=== PATIENT | male | born 2000 | race Hispanic/Latino ===

== ENCOUNTER 2021-10-23 22:05 | Emergency (ER) | payer BC, SELFPAY ==
--- OUTSIDE RECORDS SUMMARY | 2021-10-23 22:07 | XMS REPORT | Continuity of Care Document ---
:2000 Author Organization [facility] t Address [address] [place] [address] Care Team Providers Name Role Phone Alex Attending Clinician Unavailable Problems This patient has no known problems. Allergies, Adverse Reactions, Alerts This patient has no known allergies or adverse reactions. Medications This patient has no known medications. Procedures This patient has no known procedures. Encounters Start End Encounter Admission Attending Care Care Encounter Source Date/Time Date/Time Type Type Clinicians Facility Department ID 2021-07-20 [facility] [id number] [facility] 14:21:30 [place] [id number] [facility] 2021-07-20 [facility] [id number] [facility] 14[facility]20:24 [id number] [facility] 2021-06-03 2021-06-03 [facility] [id number] [facility] 2021-05-31 2021-05-31 ambulatory [facility] [id number] [facility] 2018-02-14 2018-02-14 [facility] [id number] 11:00[facility]00 11:00[facility]00 [facility] Results Test Description Test Time Test Comments Results Result Comments Source SARS-CoV-2 (COVID-19), RT-PCR/TMA 2021-07-20 08:40:51 Test Item Value Reference Range Interpretation Comme nts SARS-CoV-2 INTERPRETATION POSITIVE SEE NOTE A S ARS-CoV-2 RNA DETECTEDPositive (test code = 70119) results are indicative of the presence of FLAKITA S-CoV-2 RNA;clinical co rrelation with patient history and other diagnosticinfor mation is necessary to de termine patient infection statu s.Positive results do not rule out bacterial infection or co -infectionwith other viruses. Positive and negative predic tive values oftesting are h ighly dependent on prevalence. SOURCE (test code = 79274) NOT SPECIFIED Note: Methodology is Cube[employer] Real-Time RT-PC R. The expected result or ref erence range is NEGATIVE (Not D etected). For more information reg arding COVID-19 testing to incl ude clinicalinforma tion, methodology detail, intende d use, FDA authorization a ndrecommended fact sheets for susy ents or healthcare providers, see NewTest Announcement: S ARS-CoV-2 (COVID-19) by N AAT at URL below (note,fact shee ts are provided by method given in report:https:// www.[employer]/cl inicians/client -communications/ Alternatively, see downloadable PDF fact sheet at:https://www. [employer]/COVID- 19-RT-PCR UNLESS OTHERWISE INDICATED, ALL TESTING PERFORMED ATCLINICAL PATH [facility]. [address] [place] [address] 4 LABORATORY DIRE CTOR: MARCELL SMITH M.D. CLIA NUMBER [id number] [facility] [place]. [id number]
--- NOTE | 2021-10-24 02:01 | EDPHYS ---
Physician Documentation [facility] Name: Tha Suh Age: 21 yrs Sex: Male : 2000 Arrival Date: 10/23/2021 Time: 22:08 Bed 8 Private MD: HENRI Physician Eagle Rios HPI: 10/24 01:55 This 21 yrs old Male presents to ER via Ambulatory with complaints of Knee annika Injury. 01:55 The patient presents with decreased range of motion, pain, that is acute. The annika complaints affect the medial aspect of right knee. Context: The problem was sustained on a street or driveway. Onset: The symptoms/episode began/occurred yesterday. Modifying factors: The symptoms are alleviated by elevating leg, remaining still, the symptoms are aggravated by movement, weight bearing, bending knee. Associated signs and symptoms: The patient has no apparent associated signs or symptoms. Severity of symptoms: At their worst the symptoms were moderate, in the emergency department the symptoms are unchanged. The patient has not experienced similar symptoms in the past. Historical: - Allergies: 10/23 22:35 No Known Allergies; jb4 - Home Meds: 22:35 None [Active]; jb4 - PMHx: 22:35 None; jb4 - PSHx: 22:35 None; jb4 - Immunization history:: Adult Immunizations up to date. - Social history:: Smoking status: Patient reports the use of cigarette tobacco products, denies chronic smoking, but will smoke occasionally, Patient uses alcohol, occasionally. Patient/guardian denies using street drugs. - Family history:: not pertinent. ROS: 10/24 01:55 Constitutional: Negative for fever, chills, and weight loss, Eyes: Negative for injury, annika pain, redness, and discharge, ENT: Negative for injury, pain, and discharge, Neck: Negative for injury, pain, and swelling, Cardiovascular: Negative for chest pain, palpitations, and edema, Respiratory: Negative for shortness of breath, cough, wheezing, and pleuritic chest pain, Abdomen/GI: Negative for abdominal pain, nausea, vomiting, diarrhea, and constipation, Back: Negative for injury and pain, : Negative for injury, bleeding, discharge, and swelling, Skin: Negative for injury, rash, and discoloration, Neuro: Negative for headache, weakness, numbness, tingling, and seizure, Psych: Negative for depression, anxiety, suicide ideation, homicidal ideation, and hallucinations, Allergy/Immunology: Negative for hives, rash, and allergies, Endocrine: Negative for neck swelling, polydipsia, polyuria, polyphagia, and marked weight changes, Hematologic/Lymphatic: Negative for swollen nodes, abnormal bleeding, and unusual bruising. MS/extremity: Positive for decreased range of motion, pain, of the medial aspect of right knee. Exam: 01:55 Constitutional: This is a well developed, well nourished patient who is awake, alert, annika and in no acute distress. Head/Face: Normocephalic, atraumatic. Eyes: Pupils equal round and reactive to light, extra-ocular motions intact. Lids and lashes normal. Conjunctiva and sclera are non-icteric and not injected. Cornea within normal limits. Periorbital areas with no swelling, redness, or edema. ENT: Nares patent. No nasal discharge, no septal abnormalities noted. Tympanic membranes are normal and external auditory canals are clear. Oropharynx with no redness, swelling, or masses, exudates, or evidence of obstruction, uvula midline. Mucous membranes moist. Neck: Trachea midline, no thyromegaly or masses palpated, and no cervical lymphadenopathy. Supple, full range of motion without nuchal rigidity, or vertebral point tenderness. No Meningismus. Chest/axilla: Normal chest wall appearance and motion. Nontender with no deformity. No lesions are appreciated. Cardiovascular: Regular rate and rhythm with a normal S1 and S2. No gallops, murmurs, or rubs. Normal PMI, no JVD. No pulse deficits. Respiratory: Lungs have equal breath sounds bilaterally, clear to auscultation and percussion. No rales, rhonchi or wheezes noted. No increased work of breathing, no retractions or nasal flaring. Abdomen/GI: Soft, non-tender, with normal bowel sounds. No distension or tympany. No guarding or rebound. No evidence of tenderness throughout. Back: No spinal tenderness. No costovertebral tenderness. Full range of motion. Male : Normal genitalia with no discharge or lesions. Skin: Warm, dry with normal turgor. Normal color with no rashes, no lesions, and no evidence of cellulitis. Neuro: Awake and alert, GCS 15, oriented to person, place, time, and situation. Cranial nerves II-XII grossly intact. Motor strength 5/5 in all extremities. Sensory grossly intact. Cerebellar exam normal. Normal gait. Psych: Awake, alert, with orientation to person, place and time. Behavior, mood, and affect are within normal limits. 01:55 Musculoskeletal/extremity: ROM: full active range of motion, full passive range of motion. Vital Signs: 10/23 22:34 BP 121 / 71; Pulse 57; Resp 16; Temp 98.9(O); Pulse Ox 100% on R/A; Weight 63.5 kg (R); jb4 Height 5 ft. 4 in. (162.56 cm) (R); Pain 6/10; 22:34 Body Mass Index 24.03 (63.50 kg, 162.56 cm) jb4 MDM: 10/24 00:49 Patient medically screened. annika 10/23 22:49 Order name: Knee Left 3 View XRAY jmm Administered Medications: 02:16 Not Given (Patient Refused): Motrin (ibuprofen) 600 mg PO once as6 Disposition Summary: 10/24/21 02:01 Discharge Ordered Location: Home annika Problem: new annika Symptoms: have improved annika Condition: Stable annika Diagnosis - Sprain of medial collateral ligament of left knee annika - Pain in left knee annika Followup: annika - With: Private Physician - When: 2 - 3 days - Reason: Recheck today's complaints, Continuance of care, Re-evaluation by your physician Followup: annika - With: Adrien Hoffmann MD - When: 2 - 3 days - Reason: Recheck today's complaints, Re-evaluation by your physician Discharge Instructions: - Discharge Summary Sheet annika - Joint Pain annika - How to Use a Knee Brace annika - Acute Knee Pain, Adult annika - Joint Pain, [id number] annika - Medial Collateral Knee Ligament Sprain annika Forms: - Medication Reconciliation Form annika - Thank You Letter annika - Antibiotic Education annika - Prescription Opioid Use annika Prescriptions: - Ibuprofen 600 mg Oral Tablet - take 1 tablet by ORAL route every 6 hours As needed take with food; 20 tablet; annika Refills: 0, Product Selection Permitted - Tylenol-Codeine #3 300 mg-30 mg Oral - take 1 tablet by ORAL route every 4 hours; 20 tablet; Refills: 0, Product annika Selection Permitted Signatures: Dispatcher [employer] Eagle Pascual MD MD cha Bryson, James RN RN jb4 Vahe Aranda RN as6 Corrections: (The following items were deleted from the chart) 02:30 01:55 Ice pack ordered. annika as6 02:30 01:55 Knee Immobilizer ordered. annika as6
--- NOTE | 2021-10-24 02:01 | ER ---
Nurse's Notes [facility] Name: Tha Suh Age: 21 yrs Sex: Male : 2000 Arrival Date: 10/23/2021 Time: 22:08 Bed 8 Private MD: Diagnosis: Sprain of medial collateral ligament of left knee;Pain in left knee Presentation: 10/23 22:34 Chief complaint: Patient states: I was skate boarding and fell on my left knee. It bend jb4 outward and I heard a pop. I think I may have dislocated it. Coronavirus screen: At this time, the client does not indicate any symptoms associated with coronavirus-19. Ebola Screen: No symptoms or risks identified at this time. Initial Sepsis Screen: Does the patient meet any 2 criteria? No. Patient's initial sepsis screen is negative. Does the patient have a suspected source of infection? No. Patient's initial sepsis screen is negative. Risk Assessment: Do you want to hurt yourself or someone else? Patient reports no desire to harm self or others. Onset of symptoms was October 23, 2021. Transition of care: patient was not received from another setting of care. 22:34 Method Of Arrival: Ambulatory jb4 22:34 Acuity: ROGER 4 jb4 Historical: - Allergies: 22:35 No Known Allergies; jb4 - Home Meds: 22:35 None [Active]; jb4 - PMHx: 22:35 None; jb4 - PSHx: 22:35 None; jb4 - Immunization history:: Adult Immunizations up to date. - Social history:: Smoking status: Patient reports the use of cigarette tobacco products, denies chronic smoking, but will smoke occasionally, Patient uses alcohol, occasionally. Patient/guardian denies using street drugs. - Family history:: not pertinent. Screenin/02 02:33 Abuse screen: Denies threats or abuse. Denies injuries from another. Nutritional as6 screening: No deficits noted. Tuberculosis screening: No symptoms or risk factors identified. Fall Risk None identified. Assessment: 02:30 General: Appears in no apparent distress. Pain: Complains of pain in left knee. Neuro: as6 Level of Consciousness is awake, alert, obeys commands, Oriented to person, place, time, situation. Cardiovascular: JVD is absent Patient's skin is warm and dry. Respiratory: Respiratory effort is even, unlabored, Respiratory pattern is regular, symmetrical. Musculoskeletal: Reports pain in left knee. 02:33 General: Behavior is calm, cooperative. as6 Vital Signs: 05 22:34 BP 121 / 71; Pulse 57; Resp 16; Temp 98.9(O); Pulse Ox 100% on R/A; Weight 63.5 kg (R); jb4 Height 5 ft. 4 in. (162.56 cm) (R); Pain 6/10; 22:34 Body Mass Index 24.03 (63.50 kg, 162.56 cm) jb4 ED Course: 22:08 Patient arrived in ED. bp1 22:35 Triage completed. jb4 22:35 Arm band placed on right wrist. jb4 23:42 Knee Left 3 View XRAY In Process Unspecified. EDNC 10/24 00:37 Eagle Rios MD is Attending Physician. [facility] 00:45 Amrik Stauffer PA is PHCP. [facility] 00:58 Vahe Aranda, RN is Primary Nurse. as6 01:58 Adrien Hoffmann MD is Referral Physician. annika 02:33 Bed in low position. Call light in reach. Adult w/ patient. as6 02:33 No provider procedures requiring assistance completed. Patient did not have IV access as6 during this emergency room visit. Administered Medications: 02:16 Not Given (Patient Refused): Motrin (ibuprofen) 600 mg PO once as6 Outcome: 02:01 Discharge ordered by . [facility] 02:33 Discharged to home ambulatory, with family. as6 02:33 Condition: stable 02:33 Discharge instructions given to pt left without receiving discharge instructions/papers/prescriptions 02:34 Patient left the ED. as6 Signatures: Dispatcher [employer] EDNC Eagle Rios MD MD cha Mickail, Joel, PA PA jmm Bryson, James, RN RN jb4 [facility] Vahe Aranda, PILAR RN as6
[2021-10-24] MEDS ORDERED: IBUPROFEN 400 MG TAB ONE (02:18)
[2021-10-24] MEDS ORDERED: IBUPROFEN 200 MG TAB PO ONE (02:18)
--- NOTE | 2021-10-24 21:27 | RAD REPORT ---
EXAM DESCRIPTION: RAD - Knee Left 3 View - 10/23/2021 11:40 pm CLINICAL HISTORY: Fall COMPARISON: None. TECHNIQUE: XR KNEE 3 VIEWS 10/23/2021 10:49 PM CDT FINDINGS: There is no fracture. Joint spaces are preserved. Soft tissues are unremarkable. IMPRESSION: No acute osseous findings. Electronically signed by: Evangelist Francois MD 10/24/2021 12:04 AM CDT Due to temporary technical issues with the PACS/Fluency reporting system, reports are being signed by the in house radiologists without review as a courtesy to insure prompt reporting. The interpreting radiologist is fully responsible for the content of the report.
== END 2021-10-24 02:34 | disposition home or self-care (01) ==
LOC: ER 22:05
DX: S83.412A Sprain of medial collateral ligament of left knee, initial encounter (principal); F17.210 Nicotine dependence, cigarettes, uncomplicated
CPT/HCPCS: 99283

== ENCOUNTER 2023-04-22 04:02 | Emergency (ER) | payer SELFPAY ==
--- OUTSIDE RECORDS SUMMARY | 2023-04-22 04:05 | XMS REPORT | Continuity of Care Document ---
:2000 Author Organization [facility] t Address [address] [place] [address] Care Team Providers Name Role Phone Edna Johnson Attending Clinician Unavailable Problems Condition Condition Condition Status Onset Resolution Last Treating Co mments Source Name Details Category Date Date Treatment Clinician Date [id number] Sprain of Problem Active Comm on anterior [facility] talofibula - [facility] r ligament St of left [facility] ankle, [facility] initial Center encounter [id number] Pain, Problem Active Commo n [id number] joint, [facility] ankle, [facility] right [facility] [id number] Pain, Problem Active Commo n [id number] joint, [facility] foot, [facility] right [facility] Allergies, Adverse Reactions, Alerts This patient has no known allergies or adverse reactions. Social History Social Habit Start Date Stop Date Quantity Comments Source History of Tobacco Use Co mmon [facility] Sex Assigned At Com mon [facility] Smoking Status Start Date Stop Date Source Never Smoker [facility] Medications Ordered Filled Start Stop Current Ordering Indication Dosage Frequency Signature Comments Components Source Medication Medication Date Date Medication? Clinician (SIG) Name Name No Known No Known No Common Medications Medications [facility] Vital Signs Vital Name Observation Time Observation Value Comments Source height 2021-05-31 10:00:00 64 [in_i] Common [facility] weight 2021-05-31 10:00:00 136.6 [lb_av] Common [facility] temperature 2021-05-31 10:00:00 97.1 [degF] Common [facility] bmi 2021-05-31 10:00:00 23.44 kg/m2 Common [facility] oximetry 2021-05-31 10:00:00 100 % Common [facility] respiratory rate 2021-05-31 10:00:00 16 /min Comm on [facility] blood pressure 2021-05-31 10:00:00 120 mm[Hg] Common [facility] - systolic [facility] blood pressure 2021-05-31 10:00:00 70 mm[Hg] Common [facility] - diastolic [facility] Procedures This patient has no known procedures. Encounters Start End Encounter Admission Attending Care Care Encounter Source Date/Time Date/Time Type Type Clinicians Facility Department ID 2021-07-20 Outpatient Johnson, [facility] [id number] Common 14:21:30 Avnee [id number] [facility] 2021-07-20 Outpatient [facility] ST[facility] [id number] [facility] 14:20:24 [id number] [facility] 2021-06-03 2021-06-03 ambulatory STLMLC STL[facility]C [id number] [facility] 00:00:00 00:00:00 [facility] 2021-05-31 2021-05-31 OFFICE STLMLC STLMLC [id number] Co mmon 00:00:00 00:00:00 VISIT EST Spir it PT LEVEL 3 - [facility] 2018-02-14 2018-02-14 [facility] [id number] [facility] 11:00:00 11:00:00 [facility] Results Test Description Test Time Test Comments Results Result Comments Source SARS-CoV-2 (COVID-19), RT-PCR/TMA 2021-07-20 08:40:51 Test Item Value Reference Range Interpretation Comme nts SARS-CoV-2 INTERPRETATION POSITIVE SEE NOTE A S ARS-CoV-2 RNA DETECTEDPositive (test code = 76000) results are indicative of the presence of FLAKITA S-CoV-2 RNA;clinical co rrelation with patient history and other diagnosticinfor mation is necessary to de termine patient infection statu s.Positive results do not rule out bacterial infection or co -infectionwith other viruses. Positive and negative predic tive values oftesting are h ighly dependent on prevalence. SOURCE (test code = 64150) NOT SPECIFIED Note: Methodology is [employer] Mar[employer] Real-Time RT-PC R. The expected result or refer ence range is NEGATIVE (Not D etected). For more information reg arding COVID-19 testing to incl ude clinicalinforma tion, methodology detail, intende d use, FDA authorization a ndrecommended fact sheets for susy ents or healthcare providers, see NewTest Announcement: S ARS-CoV-2 (COVID-19) by N AAT at URL below (note,fact shee ts are provided by method given in report:https:// www.[employer]/cl inicians/client -communications/ Alternatively, see downloadable PDF fact sheet at:https://www. [employer]/COVID- 19-RT-PCR UNLES S OTHERWISE INDICATED, ALL TESTING PERFORMED ATCLINICAL PATH [facility]. [address] [place] [address] 4 PACKAGING CLERK: MARCELL SMITH M.D. CLIA NUMBER [id number] [facility] N O. [id number]
[2023-04-22 04:33] LABS: Absolute Lymphocytes (CBC) 1.4 K/uL (0.7-4.9); Hematocrit 36.1 % (39.6-49.0); Lymphocytes % 14.4 % (15.3-44.8); MCV 92.5 fL (80-100); MPV 8.3 fL (7.6-11.3); Platelets 203 thou/uL (152-406)
[2023-04-22 04:39] LABS: Protime INR 1.07
[2023-04-22 04:51] LABS: ALT/SGPT 23 U/L (16-61); AST/SGOT 22 U/L (15-37); Albumin 3.9 g/dL (3.4-5.0); Alkaline Phosphatase 55 U/L (45-117); BUN Blood Urea Nitrogen 8 mg/dL (7-18); Bicarbonate 25 mEq/L (21-32); Bilirubin Direct 0.2 mg/dL (0-0.2); Bilirubin Indirect, Calculated 0.5 mg/dL (0.2-0.8); Bilirubin Total 0.7 mg/dL (0.2-1.0); Glomerular Filtration Rate 125 ml/min (=/>90); Glucose Level 121 mg/dL (74-106); Potassium 3.3 mEq/L (3.5-5.1); Protein, Total 7.4 g/dL (6.4-8.2); Sodium Level 142 mEq/L (136-145)
[2023-04-22 06:38] LABS: Specific Gravity < 1.005 (1.005-1.030); Urine Bacteria None Seen /HPF (<20); Urine Bilirubin NEGATIVE (Negative); Urine Blood Negative (Negative); Urine Clarity Turbid (Clear); Urine Color Colorless (Yellow); Urine Glucose NEGATIVE (Negative); Urine Protein NEGATIVE (Negative); Urine RBC <5 /HPF (None Seen); Urine Urobilinogen Normal (Normal)
[2023-04-22 06:53] LABS: Barbiturates NEGATIVE (NEGATIVE); Benzodiazepines NEGATIVE (NEGATIVE); Cocaine NEGATIVE (NEGATIVE); METHAMPHETAM NEGATIVE (NEGATIVE); Opiates NEGATIVE (NEGATIVE); Phencyclidine NEGATIVE (NEGATIVE); THC Cannibis POSITIVE (NEGATIVE)
[2023-04-22 08:36] LABS: Methadone ND (NEGATIVE)
--- NOTE | 2023-04-22 10:02 | ER ---
Nurse's Notes [facility] Name: Tha Suh Age: 23 yrs Sex: Male : 2000 Arrival Date: 04/22/2023 Time: 04:02 Bed 20 Private MD: Diagnosis: Alcohol use, unspecified with intoxication, uncomplicated Presentation: 04/22 04:08 Chief complaint: EMS states: He was found in the middle of the road. apparently his ha1 friends got him of the car because he defecated on himself. responds to name with sternum rub. Coronavirus screen: Vaccine status:. Ebola Screen: No symptoms or risks identified at this time. Initial Sepsis Screen: Does the patient meet any 2 criteria? No. Patient's initial sepsis screen is negative. Does the patient have a suspected source of infection? No. Patient's initial sepsis screen is negative. Risk Assessment: Do you want to hurt yourself or someone else? Patient reports no desire to harm self or others. 04:08 Method Of Arrival: EMS: [facility] ha1 04:08 Acuity: ROGER 2 ha1 04:08 Onset of symptoms was April 22, 2023. ha1 09:40 Risk Assessment: Do you want to hurt yourself or someone else? Patient reports no nj1 desire to harm self or others. Triage Assessment: 04:08 General: Appears well developed, Behavior is responds to name with sternum rub . Pain: ha1 Unable to use pain scale. FLACC scale score is 0 out of 10. Neuro: Level of Consciousness is lethargic, Oriented to person. Cardiovascular: Heart tones S1 S2 present Capillary refill < 3 seconds Patient's skin is warm and dry. Rhythm is sinus rhythm. Respiratory: Airway is patent Respiratory effort is even, unlabored, Respiratory pattern is regular, symmetrical. Derm: Skin is pink, warm \T\ dry. Historical: - Allergies: 04:08 No Known Allergies; ha1 - PMHx: 04:08 None; ha1 - Immunization history:: Adult Immunizations unknown. - Social history:: Smoking status: unknown. Screenin:04 Abuse screen: Denies threats or abuse. Denies injuries from another. Nutritional ha1 screening: No deficits noted. Tuberculosis screening: No symptoms or risk factors identified. Assessment: 04:08 Reassessment: see triage assessment. ha1 05:10 Reassessment:. General: Appears comfortable. Cardiovascular: Capillary refill < 3 ha1 seconds Patient's skin is warm and dry. Respiratory: Airway is patent Respiratory effort is even, unlabored, Respiratory pattern is regular, symmetrical. 06:10 Reassessment: eyes closed. Respiratory: Airway is patent Respiratory effort is even, ha1 unlabored, Respiratory pattern is regular, symmetrical. 09:45 Reassessment: Patient appears in no apparent distress at this time. Patient and/or nj1 family updated on plan of care and expected duration. Pain level reassessed. Patient is alert, oriented x 3, equal unlabored respirations, skin warm/dry/pink. Vital Signs: 04:08 BP 109 / 59; Pulse 68; Resp 20; Temp 97.9; Pulse Ox 97% on R/A; Weight 70.31 kg; Height ha1 5 ft. 7 in. ; 05:15 BP 99 / 57; Pulse 63; Resp 17 S; Pulse Ox 96% on R/A; ha1 06:10 BP 102 / 65; Pulse 64; Resp 18 S; Pulse Ox 98% on R/A; ha1 09:37 BP 102 / 63; Pulse 70; Resp 16; Pulse Ox 99% ; nj1 04:08 Body Mass Index 24.28 (70.31 kg, 170.18 cm) ha1 ED Course: 04:08 Patient arrived in ED. ha1 04:08 Srikanth Kelley MD is Attending Physician. rt 04:08 Arm band placed on right wrist. ha1 04:08 Patient has correct armband on for positive identification. Bed in low position. Call ha1 light in reach. Side rails up X 1. 04:15 Inserted saline lock: 20 gauge in right antecubital area, using aseptic technique. ha1 Blood collected. 04:25 Victorina Hebert, RN is Primary Nurse. ha1 04:25 Acetaminophen Sent. ha1 04:25 Basic Metabolic Panel Sent. ha1 04:25 CBC with Diff Sent. ha1 04:25 ETOH Level Sent. ha1 04:58 Triage completed. ha1 05:04 CT Head C Spine In Process Unspecified. EDMS 05:45 Straight cath inserted, using sterile technique, 16 Fr. Returned clear yellow urine. ha1 Patient tolerated well. 07:22 Attending Physician role handed off by Srikanth Kelley MD ec2 07:22 Angel Paul MD is Attending Physician. ec2 09:45 Provided Education on: call light, fall precautions. nj1 09:50 No provider procedures requiring assistance completed. IV discontinued, intact, nj1 bleeding controlled. Administered Medications: No medications were administered Medication: 10:33 VIS not applicable for this client. nj1 Outcome: 10:01 Discharge ordered by . ec2 10:05 Discharged to home ambulatory, with friend, nj1 10:05 Condition: stable 10:05 Discharge instructions given to Left prior to receiving discharge paperwork. 10:33 Patient left the ED. nj1 Signatures: Dispatcher [employer] Victorina Rivas RN RN ha1 Srikanth Kelley MD MD rt Gladis Panda RN RN nj1 Angel Paul MD MD ec2 Corrections: (The following items were deleted from the chart) 06:20 04:08 BP 109 / 59; Pulse 68bpm; Resp 20bpm; Pulse Ox 98% RA; Temp 97.9F; 70.31 kg; ha1 Height 5 ft. 7 in.; BMI: 24.2; ha1
--- NOTE | 2023-04-22 10:02 | EDPHYS ---
Physician Documentation [facility] Name: Tha Suh Age: 23 yrs Sex: Male : 2000 Arrival Date: 04/22/2023 Time: 04:02 Bed 20 Private MD: ED Physician Angel Paul HPI: 04/22 05:17 This 23 yrs old Male presents to ER via EMS with complaints of ETOH Abuse. rt 05:17 Patient was brought in by EMS for reported alcohol intoxication. The patient was rt reportedly found on the ground in the street. No obvious signs of trauma. States the patient defecated on himself. No further history could be obtained, symptoms are moderate severity, no other aggravating or alleviating factors.. Historical: - Allergies: 04:08 No Known Allergies; ha1 - PMHx: 04:08 None; ha1 - Immunization history:: Adult Immunizations unknown. - Social history:: Smoking status: unknown. ROS: 05:17 Unable to obtain ROS due to altered mental status, rt 10:01 Constitutional: as per hpi ec2 Exam: 05:17 Head/Face: Normocephalic, atraumatic. Chest/axilla: Normal chest wall appearance and rt motion. Nontender with no deformity. No lesions are appreciated. Cardiovascular: Regular rate and rhythm with a normal S1 and S2. No gallops, murmurs, or rubs. Normal PMI, no JVD. No pulse deficits. Respiratory: Lungs have equal breath sounds bilaterally, clear to auscultation and percussion. No rales, rhonchi or wheezes noted. No increased work of breathing, no retractions or nasal flaring. Abdomen/GI: Soft, non-tender, with normal bowel sounds. No distension or tympany. No guarding or rebound. No evidence of tenderness throughout. Skin: Warm, dry with normal turgor. Normal color with no rashes, no lesions, and no evidence of cellulitis. MS/ Extremity: Pulses equal, no cyanosis. Neurovascular intact. Full, normal range of motion. 05:17 Constitutional: The patient appears Somnolent, protecting airway 05:17 Neuro: Somnolent, moves all 4 extremities equally, no speech noted, 06:55 ECG was reviewed by the Attending Physician. rt Vital Signs: 04:08 BP 109 / 59; Pulse 68; Resp 20; Temp 97.9; Pulse Ox 97% on R/A; Weight 70.31 kg; Height ha1 5 ft. 7 in. ; 05:15 BP 99 / 57; Pulse 63; Resp 17 S; Pulse Ox 96% on R/A; ha1 06:10 BP 102 / 65; Pulse 64; Resp 18 S; Pulse Ox 98% on R/A; ha1 09:37 BP 102 / 63; Pulse 70; Resp 16; Pulse Ox 99% ; nj1 04:08 Body Mass Index 24.28 (70.31 kg, 170.18 cm) ha1 MDM: 04:08 Patient medically screened. rt 07:22 ED course: Patient signed out to me by previous physician, in brief patient here with ec2 alcohol intoxication. Plan is to metabolize to freedom and reassess the patient, discharged with a safe plan.. 07:24 ED course: Patient's lab work is remarkable for a within normal ranges his Tylenol ec2 level, metabolic profile that shows appropriate electrolytes and renal function, CBC with reassuring, alcohol level is elevated at 323, negative salicylate, urine is noninfectious, drug screen is pertinent for THC positivity. . 08:21 ED course: CT scan of the head and C-spine shows no acute traumatic pathology. On ec2 reassessment patient remains intoxicated, pending clinical sobering.. 10:00 Data reviewed: vital signs. ED course: On reassessment, patient awake, alert, ec2 clinically sober. Patient was discharged home in care of family.. 04/22 04:08 Order name: Acetaminophen; Complete Time: 05:21 rt 04/22 04:08 Order name: Basic Metabolic Panel; Complete Time: 05:21 rt 04/22 04:08 Order name: CBC with Diff; Complete Time: 05:21 rt 04/22 04:08 Order name: ETOH Level; Complete Time: 05:21 rt 04/22 04:08 Order name: Hepatic Function; Complete Time: 05:21 rt 04/22 04:08 Order name: PT-INR; Complete Time: 05:21 rt 04/22 04:08 Order name: Ptt, Activated; Complete Time: 05:21 rt 04/22 04:08 Order name: Salicylate; Complete Time: 05:21 rt 04/22 04:08 Order name: Urinalysis w/ reflexes; Complete Time: 06:53 rt 04/22 04:08 Order name: Urine Drug Screen; Complete Time: 09:06 rt 04/22 04:21 Order name: Glucose, Ancillary Testing; Complete Time: 05:21 EDMS 04/22 04:08 Order name: CT Head C Spine rt 04/22 04:08 Order name: EKG; Complete Time: 04:09 rt 04/22 04:08 Order name: EKG - Nurse/Tech; Complete Time: 04:25 rt 04/22 04:08 Order name: IV Saline Lock; Complete Time: 04:25 rt 04/22 04:08 Order name: Labs collected and sent; Complete Time: 04:25 rt 04/22 04:08 Order name: Suicide Screening (Bud); Complete Time: 10:04 rt EC:55 Rate is 62 beats/min. Rhythm is regular, Normal Sinus Rhythm with No ectopy. QRS [place] rt is Normal. NE interval is normal. QRS interval is normal. QT interval is normal. No Q waves. T waves are Normal. No ST changes noted. Interpreted by me. Administered Medications: No medications were administered Disposition Summary: 04/22/23 10:01 Discharge Ordered Notes: Location: Home ec2 Condition: Stable ec2 Diagnosis - Alcohol use, unspecified with intoxication, uncomplicated ec2 Discharge Instructions: - Discharge Summary Sheet ec2 - Alcohol Intoxication ec2 Forms: - Medication Reconciliation Form ec2 - Thank You Letter ec2 - Antibiotic Education ec2 - Prescription Opioid Use ec2 - Patient Portal Instructions ec2 - Leadership Thank You Letter ec2 Signatures: Dispatcher [employer] Victorina Rivas RN RN ha1 Srikanth Kelley MD MD rt Angel Paul MD MD ec2
[2023-04-22 10:54] VITALS: TEMP 97.9
[2023-04-22 10:59] VITALS: BP 102/63; O2SAT 99
--- NOTE | 2023-04-23 12:17 | RAD REPORT ---
CT - Head C Spine Mpr Wo Con - 04/22/2023 6:23 am CLINICAL HISTORY: Ams TECHNIQUE: Contiguous axial CT images obtained through the brain without IV contrast. Coronal and sa gittal reformatted images were provided. This exam was performed according to our departmental dose-optimization program, which includes autom ated exposure control, adjustment of the mA and/or kV according to patient size and/or use of iterati ve reconstruction technique. COMPARISON: None available for comparison FINDINGS: Brain: No significant white matter changes. No focal mass effect. Roca-white matter differ entiation is within normal limits. No hemorrhage. Ventricles: No ventriculomegaly or midline shift. Extra-axial spaces: No extra-axial collection or hemorrhage. Paranasal sinuses and mastoid air cells: Well-aerated Bones: Unremarkable Soft tissues: Unremarkable IMPRESSION: No evidence of acute intracranial pathology. TECHNIQUE: Head C Spine Mpr Wo Con CLINICAL HISTORY: Ams TECHNIQUE: Contiguous axial CT images obtained through the cervical spine without IV contrast. Cor onal and sagittal reformatted images also provided. This exam was performed according to our departmental dose-optimization program, which includes autom ated exposure control, adjustment of the mA and/or kV according to patient size and/or use of iterati ve reconstruction technique. COMPARISON: None available for comparison FINDINGS: Vertebra: No acute fracture or subluxation. Degenerative changes: Intervertebral disc spaces are fairly well maintained. No critical canal stenos is. Foramina appear patent. Prevertebral soft tissues: Unremarkable Lung apices: Clear IMPRESSION: No acute cervical spine injury. Electronically signed by: Tommie Wells MD 04/22/2023 5:31 AM CDT Due to temporary technical issues with the PACS/Fluency reporting system, reports are being signed by the in house radiologists without review as a courtesy to insure prompt reporting. The interpreting radiologist is fully responsible for the content of the report.
--- NOTE | 2023-04-24 07:55 | EKG ---
Test Date: 2023-04-22 Test Time: 04:12:51 Fighter Pilot: EMA MEASUREMENT RESULTS: Intervals: Rate: 62 MI: 174 QRSD: 104 QT: 412 QTc: 418 Shannon: P: -6 MI: 174 QRS: 74 T: 35 INTERPRETIVE STATEMENTS: Normal sinus rhythm Normal ECG No previous ECG available for comparison Electronically Signed On 04-24-23 07:51:31 CDT by Tal Da Silva
== END 2023-04-22 10:33 | disposition home or self-care (01) ==
LOC: ER 04:02
DX: F10.929 Alcohol use, unspecified with intoxication, unspecified (principal)
CPT/HCPCS: 36415; 51702; 70450; 72125; 80048; 80076; 80143; 80179; 80307; 81001; 82077; 82947; 85025; 85610; 85730; 93005; 99284